=== PATIENT | female | born 1955 | race Caucasian/White ===

== ENCOUNTER 2018-02-08 18:37 | Emergency (ER) | payer OTHER | END 2018-02-08 18:57 | disposition home or self-care (01) | LOC: E/R 18:37 | DX: J20.9 Acute bronchitis, unspecified (principal); H10.10 Acute atopic conjunctivitis, unspecified eye | CPT/HCPCS: 99284; Z7502 ==

== ENCOUNTER 2019-06-07 08:56 | Emergency (ER) | payer SELFPAY, OTHER ==
[2019-06-07] MEDS: MAGNESIUM CITRATE 300 ML BTL PO (09:46)
== END 2019-06-07 10:12 | disposition home or self-care (01) ==
LOC: E/R 08:56
DX: K59.00 Constipation, unspecified (principal); Z85.3 Personal history of malignant neoplasm of breast
CPT/HCPCS: 99282